=== PATIENT | female | born 1960 | race Caucasian/White ===

== ENCOUNTER 2019-10-12 16:04 | Emergency (ER) | payer OTHER ==
[~2019-10-12] VITALS: Ht 180.3 cm; Wt 81.8 kg
[2019-10-12 16:21] VITALS: BP 157/75
[2019-10-12] MEDS ORDERED: ibuprofen tablet 400 MG TABLET PO ONE (17:10)
[2019-10-12] MEDS ORDERED: HYDR-4383 PO (17:19)
[2019-10-12] MEDS ORDERED: ONDA4TAB6 PO (17:19)
== END 2019-10-12 18:03 | disposition home or self-care (01) ==
LOC: ER 16:05
DX: S62.606A Fracture of unspecified phalanx of right little finger, initial encounter for closed fracture (principal); X58.XXXA Exposure to other specified factors, initial encounter; Y93.89 Activity, other specified; Y92.89 Other specified places as the place of occurrence of the external cause; Y99.8 Other external cause status
CPT/HCPCS: 29130; 73130; 99284